=== PATIENT | female | born 1985 | race American Indian/Alaskan Native ===

== ENCOUNTER 2021-04-15 15:18 | Emergency (ER) | payer OTHER, BC ==
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
[2021-04-15 17:24] VITALS: BP 134/88
== END 2021-04-15 17:25 | disposition home or self-care (01) ==
LOC: ED 15:18
DX: S63.681A Other sprain of right thumb, initial encounter (principal); S20.211A Contusion of right front wall of thorax, initial encounter; Z90.89 Acquired absence of other organs; V87.7XXA Person injured in collision between other specified motor vehicles (traffic), initial encounter; Y93.89 Activity, other specified; Y92.488 Other paved roadways as the place of occurrence of the external cause; Y99.8 Other external cause status
CPT/HCPCS: 99282; 99283